=== PATIENT | female | born 1980 | race Caucasian/White ===

== ENCOUNTER 2017-01-09 05:17 | Day surgery (SDC) | payer BC ==
[~2017-01-09] VITALS: Ht 154.9 cm; Wt 148.3 kg
--- NOTE | ~2017-01-09 | EKG ---
[address] [address] ELECTROCARDIOGRAM REPORT Name: DAVID ANN Room #: [address] [place] [address].R.#: [id number] Admission: 01/09/17 Attend Phys: Naif Gonzalez MD Discharge: Date of : 76 Report #: [id number] THIS REPORT FOR: //name// [facility] Test Date: 2017-01-09 Test Time: 12:13:45 Pat Name: DAVID ANN Department: Room: 150 Gender: F [employer]: KEYNETTA : 1980 Requested By: Naif Gonzalez Order Number: [id number] MD: Keanu Fowler Measurements Intervals [place] Rate: 94 P: 40 GA: 158 QRS: 21 QRSD: 88 T: 40 QT: 344 QTc: 431 Interpretive Statements Sinus rhythm No significant abnormality Compared to ECG 04/03/2001 23:09:32 No significant changes Electronically Signed On 01-09-2017 17:07:25 CDT by Keanu Fowler [email or web address] <ELECTRONICALLY SIGNED> By: Keanu Fowler MD, [facility] 01/09/17 1707 1213 12 Keanu Fowler MD, FACC /EPI
--- NOTE | ~2017-01-09 | O ---
[facility] [place] [address] OPERATIVE REPORT Name: DAVID ANN [id number] Admission: 01/09/17 Attend Phys: Naif Gonzalez MD Discharge: 01/09/17 Date of : 76 Report #: [id number] THIS REPORT FOR: //name// CC: Tai Gonzalez DATE OF SERVICE: 01/09/2017 PREOPERATIVE DIAGNOSIS: Left knee loose body and medial meniscus tear. 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 PROCEDURE: Left knee arthroscopy, removal of loose body, partial medial meniscectomy, partial lateral meniscectomy, chondroplasty, medial femoral condyle; chondroplasty, trochlea and patella. SURGEON: Naif Gonzalez MD FOOD SERVICE COUNTER CLERK: TIMBO Robison ANESTHETIC: General. INDICATIONS: See hospital H and P. DESCRIPTION OF PROCEDURE: After adequate general anesthesia had been obtained, the patient's left lower extremity was prepped and draped in the usual meticulous sterile fashion. Limb was exsanguinated with gravity, tourniquet inflated to 350 torr. Superomedial portal established by first infiltrating with 0.5% Naropin, then making a stab incision with an 11 blade. Inflow cannula placed. Knee was insufflated with fluid. Anterolateral and anteromedial portals were established utilizing the same technique. Complete diagnostic arthroscopy was performed. There was a loose body in the medial compartment, which was removed. She had grade 4 chondral defect in the anteromedial tibia beneath the meniscus as well as along the medial border of the patella. These measured approximately a cm in diameter. The unstable chondral fragments at the periphery of these lesions were smoothed with a shaver. She had a small flap tear anterior horn of meniscus was debrided with a shaver. Cruciate ligaments were intact. Lateral compartment demonstrated a small flap tear of the lateral meniscus and mid body, this was likewise debrided with a shaver. Chondral surfaces were reasonably well preserved. 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 She had unstable chondral flap and this was smoothed with a shaver. On the patellar side, she had a chondral wear along the [address] [address] OPERATIVE REPORT Name: DAVID ANN Room #: DEP [facility] Aylin#: [id number] Admission: 01/09/17 Attend Phys: Naif Gonzalez MD Discharge: 01/09/17 Date of : 76 Report #: [id number] median ridge grade 2 and a small area of grade 3 centrally. This was smoothed with a shaver as well. At this time, the knee was irrigated copiously. 0.5% Naropin infiltrated into the knee. The portals were closed with 4-0 nylon. Sterile compressive dressing applied. Tourniquet deflated. <ELECTRONICALLY SIGNED> By: Naif Gonzalez MD 01/15/172008 1503 1605 Naif Gonzalez MD /nt
[~2017-01-09 05:17] MED LIST: AMBIEN CR 6.26.25 MG PO; IBUPROFEN 200200 M1 PO; PAXIL10 MG PO; PRINIVIL40 MG PO; VENTOLIN HFA 1818 GM INH; VITAMIN D2000 UNI2 PO
[2017-01-09 12:27] LABS: CALCIUM 9.5 mg/dL (8.5-10.1)
[2017-01-09 12:33] LABS: ALBUMIN 3.7 g/dL (3.4-5.0); TOTAL BILIRUBIN 0.3 mg/dL (<0.1-1.0); TOTAL PROTEIN 8.1 g/dL (6.4-8.2)
[2017-01-09 13:25] VITALS: BP 179/91
[2017-01-09 15:24] VITALS: BP 179/91
== END 2017-01-09 16:30 | disposition home or self-care (01) ==
LOC: OR 05:17 → TBA 05:17 → OR 10:17
PROVIDERS: Orthopaedic Surgery
DX: S83.242A Other tear of medial meniscus, current injury, left knee, initial encounter (principal); S83.282A Other tear of lateral meniscus, current injury, left knee, initial encounter; M23.42 Loose body in knee, left knee; M94.262 Chondromalacia, left knee
CPT/HCPCS: 50010; 50101; 50405; 51038; 54170; 56526; 56527; 62110; 62900; 70005